=== PATIENT | male | born 1960 ===

== ENCOUNTER 2018-01-09 09:58 | Emergency (ER) | payer MEDICAID ==
[2018-01-09 10:06] VITALS: BP 181/94; PULSE 81; RESP 21; TEMP 97.5; O2SAT 97
[2018-01-09] MEDS ORDERED: Iohexol 240 (50 ml) PO ONE (11:02)
--- NOTE | 2018-01-09 11:11 | ED PDOC ---
HPI: Abdomen Time Seen by Provider: 01/09/18 10:00 Chief Complaint (Nursing): Abdominal Pain Chief Complaint (Provider): Abdominal Pain History Per: Family (daughter) History/Exam Limitations: no limitations Onset/Duration Of Symptoms: Hrs (x3) Current Symptoms Are (Timing): Still Present Additional Complaint(s): 57 year old male with medical history of hypertension, diabetes and hypercholesterolemia, presents to the emergency department with daughter for an evaluation of upper abdominal pain associated with upper back pain, vomiting and diarrhea ongoing since this morning. Denied any fever or chills. Daughter reported patient took Mylanta last night and had coffee this morning prior to calling her out of work upon onset of symptoms. PMD: none provided Past Medical History Reviewed: Historical Data, Nursing Documentation, Vital Signs Vital Signs: Last Vital Signs Temp 97.5 F L 01/09/18 10:05 Pulse 81 01/09/18 10:05 Resp 21 01/09/18 10:05 BP 181/94 H 01/09/18 10:05 Pulse Ox 97 01/09/18 16:17 - Medical History PMH: CAD, Diabetes, HTN, Hypercholesterolemia - Surgical History Surgical History: Denies: No Surg Hx Other surgeries: right wrist - Family History Family History: States: Unknown Family Hx - Social History Current smoker - smoking cessation education provided: Yes Alcohol: Occasional Drugs: Denies - Home Medications Home Medications: Ambulatory Orders Medication Instructions Recorded Famotidine [Pepcid] 20 mg PO BID PRN #10 tab 01/09/18 - Allergies Allergies/Adverse Reactions: Allergies Allergy/AdvReac Type Severity Reaction Status Date / Time No Known Allergies Allergy Verified 01/09/18 10:27 Review of Systems ROS Statement: Except As Marked, All Systems Reviewed And Found Negative Constitutional: Negative for: Fever, Chills Gastrointestinal: Positive for: Vomiting, Abdominal Pain (upper), Diarrhea Musculoskeletal: Positive for: Back Pain (upper) Physical Exam - Reviewed Nursing Documentation Reviewed: Yes Vital Signs Reviewed: Yes - Physical Exam Appears: Positive for: Uncomfortable ENT: Positive for: Normal ENT Inspection, Pharynx Is (within normal limits) Neck: Positive for: Normal Cardiovascular/Chest: Positive for: Regular Rate, Rhythm, Chest Non Tender Respiratory: Positive for: Normal Breath Sounds. Negative for: Decreased Breath Sounds, Respiratory Distress Gastrointestinal/Abdominal: Positive for: Tenderness (epigastric), Distended. Negative for: Normal Exam Extremity: Positive for: Normal ROM (upper/lower). Negative for: Pedal Edema ( bilateral) Neurologic/Psych: Positive for: Alert, Oriented - Laboratory Results Result Diagrams: 01/09/18 11:15 01/09/18 11:15 - ECG O2 Sat by Pulse Oximetry: 97 (RA) Pulse Ox Interpretation: Normal Medical Decision Making Medical Decision Making: Initial Impression: Epigastric pain Initial Plan: CT ABD/pelvis with PO and IV contrast * CMP * Lipase * CBC * Omnipaque 240 50ml PO * Pepcid 20mg IVP Time: 1210 --Patient continues to have pain. --Morphine 4mg IV ordered. 14:36 Abdomen/Pelvis CT Impression: Unremarkable abdominal/pelvic CT examination. 16:10 -Labs and CT scan are negative. pt tolerated po..feels better. Patient will be discharged. Upon provider evaluation patient is medically stable, and requires no further treatment in the ED at this time. Patient will be discharged home. Counseling was provided and all questions were answered regarding diagnosis and need for follow up. There is agreement to discharge plan. Return if symptoms persist or worsen. Scribe Attestation: Documented by Rakel Wynne, acting as a scribe for Ada Dobbs MD. Provider Scribe Attestation: All medical record entries made by the Scribe were at my direction and personally dictated by me. I have reviewed the chart and agree that the record accurately reflects my personal performance of the history, physical exam, medical decision making, and the department course for this patient. I have also personally directed, reviewed, and agree with the discharge instructions and disposition. Disposition - Clinical Impression Clinical Impression: Abdominal pain - Patient ED Disposition Is Patient to be Admitted: No Counseled Patient/Family Regarding: Studies Performed, Diagnosis, Need For Followup - Disposition Referrals: [facility] [Outside] [facility] [Outside] Disposition: Routine/Home Disposition Time: 14:00 Condition: IMPROVED Additional Instructions: follow up with your primary doctor in 1-2 days return to the ED with any worsening or concerning symptoms Prescriptions: Famotidine [Pepcid] 20 mg PO BID PRN #10 tab PRN Reason: Heartburn Instructions: Gastritis, Stomach Ache and Stomach Upset Forms: [facility] (Martiniquais) Print Language: UKRAINIAN
[2018-01-09] MEDS ORDERED: Iohexol 240 (50 ml) ONE (11:17)
[2018-01-09 11:41] LABS: ALB/GLOB RATIO 1.2 (1.0-2.1); ALBUMIN 3.8 g/dL (3.5-5.0); CALCIUM 9.5 mg/dL (8.4-10.2); GFR AFRICAN-AMERICAN > 60; GFR NON-AFRICAN AMERICAN > 60; LIPASE 283 U/L (23-300)
[2018-01-09 11:54] LABS: ALT/SGPT 25 U/L (21-72); AST/SGOT 26 U/L (17-59); BLOOD UREA NITROGEN 20 mg/dl (9-20)
[2018-01-09] MEDS ORDERED: Morphine 4 MG/ML VIAL IV ONE ×2 (12:09→14:15)
[2018-01-09] MEDS ORDERED: Morphine 4 MG/ML VIAL ONE ×2 (12:28→14:16)
[2018-01-09 12:42] LABS: BASO # 0.1 K/uL (0.0-0.2); BASO % 0.7 % (0.0-2.0); EOS # 0.2 K/uL (0.0-0.7); EOS % 1.3 % (0.0-4.0); HEMOGLOBIN 12.3 g/dL (12.0-18.0); LYMPH # 2.2 K/uL (1.0-4.3); MEAN CELL VOLUME 75.3 fl (80.0-94.0); MEAN CORPUSCULAR HEMOGLOBIN 22.8 pg (27.0-31.0); MEAN CORPUSCULAR HGB CONC 30.3 g/dL (33.0-37.0); MEAN PLATELET VOLUME 11.3 fl (7.2-11.7); MONO # 0.8 K/uL (0.0-0.8); MONO % 4.9 % (0.0-10.0); NEUT # 12.4 K/uL (1.8-7.0); NEUT % 79.1 % (50.0-75.0); RBC 5.38 Mil/uL (4.40-5.90); RED CELL DISTRIBUTION WIDTH 13.7 % (11.5-14.5); WHITE BLOOD COUNT 15.7 K/uL (4.8-10.8)
[2018-01-09] MEDS ORDERED: Iohexol 300 100 ML IJ ONE (12:58)
[2018-01-09] MEDS ORDERED: Sodium Chloride 0.9% 50 ML IV ONE (12:58)
--- NOTE | 2018-01-09 14:37 | CT ---
PROCEDURE: CT Abdomen and Pelvis with contrast HISTORY: abdominal pain COMPARISON: None. TECHNIQUE: Contrast dose: 95 cc Omnipaque 300 Radiation dose: Total exam DLP = 1038.15 mGy-cm. This CT exam was performed using one or more of the following dose reduction techniques: Automated exposure control, adjustment of the mA and/or kV according to patient size, and/or use of iterative reconstruction technique. FINDINGS: LOWER THORAX: Unremarkable. LIVER: Unremarkable. No gross lesion or ductal dilatation. GALLBLADDER AND BILE DUCTS: Unremarkable. PANCREAS: Unremarkable. No gross lesion or ductal dilatation. SPLEEN: Unremarkable. ADRENALS: Unremarkable. No mass. KIDNEYS AND URETERS: Unremarkable. No hydronephrosis. No solid mass. VASCULATURE: Unremarkable. No aortic aneurysm. BOWEL: Unremarkable. No obstruction. No gross mural thickening. APPENDIX: Normal appendix. PERITONEUM: Unremarkable. No free fluid. No free air. LYMPH NODES: Unremarkable. No enlarged lymph nodes. BLADDER: Unremarkable. REPRODUCTIVE: Normal prostate BONES: No acute fracture. OTHER FINDINGS: None. IMPRESSION: Unremarkable abdominal/ pelvic CT examination.
== END 2018-01-09 16:45 | disposition home or self-care (01) ==
LOC: H.ER 09:58
DX: R10.11 Right upper quadrant pain (principal); E11.9 Type 2 diabetes mellitus without complications; E78.00 Pure hypercholesterolemia, unspecified; I10 Essential (primary) hypertension; I25.10 Atherosclerotic heart disease of native coronary artery without angina pectoris
CPT/HCPCS: 74177; 80053; 83690; 85025; 96374; 99283; J2270; Q9966; Q9967

== ENCOUNTER 2018-02-12 07:15 | Day surgery (SDC) | payer MEDICAID ==
[2018-02-12] MEDS ORDERED: Lactated Ringer's 500 ML IV ONE (07:54)
[2018-02-12] MEDS ORDERED: Propofol 10 mg/ml Inj (20 ML) ONE (09:35)
[2018-02-12] MEDS ORDERED: Midazolam 2 MG/2 ML VIAL ONE (09:35)
[2018-02-12 09:56] VITALS: TEMP 97
[2018-02-12 10:10] VITALS: BP 129/51; PULSE 75; RESP 18; O2SAT 99
== END 2018-02-12 10:21 | disposition home or self-care (01) ==
LOC: H.ENDO 07:15
PROVIDERS: ATTEND Internal Medicine Gastroenterology
DX: R12 Heartburn (principal); I25.10 Atherosclerotic heart disease of native coronary artery without angina pectoris; E11.9 Type 2 diabetes mellitus without complications; E78.5 Hyperlipidemia, unspecified; I10 Essential (primary) hypertension; K21.9 Gastro-esophageal reflux disease without esophagitis; K29.50 Unspecified chronic gastritis without bleeding
CPT/HCPCS: 43239; 82948; 88305; J2250; J2704; J7120